=== PATIENT | male | born 1940 | race Caucasian/White ===

== ENCOUNTER 2019-07-03 13:45 | Observation (INO) | payer MEDICARE, OTHER ==
[2019-07-03] MEDS ORDERED: Sodium Chloride 0.9% 2.5 ML Syringe FLUSH PRN (15:11)
[2019-07-03] MEDS ORDERED: Sodium Chloride 0.9% 10 ML Syringe FLUSH PRN (15:11)
[2019-07-03] MEDS ORDERED: Sodium Chloride 0.9% 10 ML SDV IV PRN (15:11)
[2019-07-03] MEDS ORDERED: Furosemide 20 MG Tab PO SCH (15:30)
[2019-07-03] MEDS ORDERED: fentaNYL 100 MCG/2 ML SDV ONE (15:31)
[2019-07-03] MEDS ORDERED: Propofol 200 MG/20 ML SDV ONE (15:31)
[2019-07-03] MEDS ORDERED: Midazolam 1 MG/ML 2 ML SDV ONE (15:31)
[2019-07-03] MEDS ORDERED: Ketamine 500 mg/10 ML MDV ONE (15:40)
[2019-07-03] MEDS ORDERED: Sodium Chloride 0.9% 20 ML ONE (15:40)
[2019-07-03] MEDS ORDERED: Iopamidol 200-M 10 ML vial ITHECAL ONE (15:44)
[2019-07-03] MEDS ORDERED: Lidocaine 2% Jelly 30 ML Tube ONE (15:50)
[2019-07-03] MEDS: cefTRIAXone 2 GM in Premix Bag 1 BAG IV SCH (15:50)
[2019-07-03] MEDS ORDERED: Albuterol 0.083% 2.5 MG/3 ML Neb Soln INH SCH (16:00)
[2019-07-03] MEDS ORDERED: Furosemide 40 MG/4 ML VIAL ONE (16:33)
[2019-07-03] MEDS: Albuterol/Ipratropium 3.0-0.5 MG/3 ML Neb Soln INH SCH (17:23)
[2019-07-03] MEDS ORDERED: Furosemide 20 MG in Sodium Chloride 0.9% 50 ML IV STA (17:32)
--- NOTE | 2019-07-03 17:33 | PCM.POSTAN ---
POST ANESTHESIA ASSESSMENT - MENTAL STATUS Mental Status: Alert - VITAL SIGNS Vital Signs: Last Vital Signs Temp 36.8 C 07/03/19 17:04 Pulse 91 07/03/19 17:29 Resp 32 H 07/03/19 17:29 BP 120/65 07/03/19 17:29 Pulse Ox 96 07/03/19 17:29 - RESPIRATORY Respiratory Status: Respiratory Rate WNL, Airway Patent, O2 Saturation Stable, Supplemental Oxygen - CARDIOVASCULAR CV Status: Pulse Rate WNL - GASTROINTESTINAL GI Status: No Symptoms - POST OP HYDRATION Hydration Status: Adequate & Stable, Hypervolemic
--- NOTE | 2019-07-03 17:35 | OR ---
SURGEON: Bhavani Morales M.D. DATE OF PROCEDURE: 07/03/2019 PREOPERATIVE DIAGNOSIS: Urinary tract infection with a large left renal pelvis stone and obstruction. POSTOPERATIVE DIAGNOSIS: Urinary tract infection with a large left renal pelvis stone and obstruction. OPERATION: Cystoscopy and attempted left ureteral stent placement, unsuccessful. DESCRIPTION OF PROCEDURE: The patient was given adequate sedation. He was placed in dorsal lithotomy position, prepped and draped in sterile drapes. Cystourethroscopy was done, showed an enlarged prostate with a prominent median lobe. The inside of the bladder was inflamed and bloody. Attempts of locating the left ureteral orifice or the right for that matter were not successful because of the edematous changes in the bladder and close to the bladder neck. Ultimately, after about 15 minutes of looking, I could not locate the ureteral orifices and the procedure was stopped. A Candelaria catheter was placed in the bladder for drainage, and he was moved to recovery room in stable condition. GUY / TRACEY /[id number]
[2019-07-03] MEDS ORDERED: Furosemide 20 MG/2 ML VIAL ONE (17:38)
--- NOTE | 2019-07-03 17:46 | CONS ---
DATE OF CONSULTATION: 07/03/2019 DATE OF : 1940 PRIMARY CARE PHYSICIAN: DAHLIA Shanks HISTORY OF PRESENT ILLNESS: [id number]. He was transferred from [place] because he had a UTI with urinary sepsis, grew gram-positive organisms. He had a large 5 cm stone in the left renal pelvis that is creating an obstruction with edema of the renal parenchyma and perinephric stranding. He has multiple medical problems including hypertension, hypothyroidism, diabetes, insulin-dependent, obesity, congestive heart failure. His initial white blood count was 17,000 that came down to 13,000 with antibiotic treatment in [place]. His lactic acid was elevated, came back to normal at 1.3. PHYSICAL EXAMINATION: GENERAL: He is alert and oriented. He is somewhat short of breath. VITAL SIGNS: Respiratory rate is about 18. He is obese. His BMI was measured 42. HEART: Shows normal sinus rhythm. LUNGS: Clear. ABDOMEN: Obese. EXTREMITIES: 3+ peripheral edema. LABORATORY DATA: I reviewed his lab work and his CT scan. PLAN: I need to put a double-J stent in to drain the kidney better and facilitate getting rid of the infection. GUY / TRACEY /[id number]
[2019-07-03] MEDS ORDERED: Furosemide 20 MG/2 ML VIAL IVPUSH ONE ×2 (18:40→19:10)
--- NOTE | 2019-07-03 19:46 | PCM.CONS ---
H&P History of Present Illness - General Date of Service: 07/03/19 Admit Problem/Dx: Admission Diagnosis/Problem Admission Diagnosis/Problem Kidney stone History Limitations: Reports: No Limitations - History of Present Illness Initial Comments - Free Text/Narative: Patient is a 78 y/o M with PMH of HFpEF, DM, recurrent renal stones, recent urosepsis, gastroparesis, LVH, JOSE D, COPD, Fatty liver disease, HTN, OA, comes in from [facility] where he was being treated for sepsis secondary to UTI/ pyelonephritis, Urine cultures reportedly were growing gram positive organism. Patient was found to have a left renal staghorn calculi, and it was decided to transfer patient to [facility] for further management. Here at [place] the cystoscopy was attempted but was unsuccessful due to the edematous bladder wall causing obstruction. Patient was admitted to med-surg unit for further monitoring with possible transfer to [place] in AM. During my encounter patient was comfortable, denied chest pain,n/v, abdominal pain, fever, chills, sob, cough. - Related Data Allergies/Adverse Reactions: Allergies Allergy/AdvReac Type Severity Reaction Status Date / Time dapagliflozin [From [facility]] Allergy Hives Verified 07/03/19 13:53 Home Medications: Home Meds Acetaminophen [Tylenol Arthritis Pain] 650 mg PO ASDIRECTED PRN 07/03/19 [ History] Albuterol [Proventil Neb Soln] 1 puff INH Q4HR 07/03/19 [History] Albuterol/Ipratropium [DuoNeb 3.0-0.5 MG/3 ML] 1 puff INH Q6HR 07/03/19 [History ] Budesonide [Pulmicort] 1 puff INH BID 07/03/19 [History] Furosemide 20 mg PO ASDIRECTED 07/03/19 [History] Insulin Lispro [HumaLOG] 2 - 6 units SQ ASDIRECTED 07/03/19 [History] Metoprolol Tartrate 50 mg PO BID 07/03/19 [History] Past Medical History HEENT History: Reports: None Cardiovascular History: Reports: Heart Failure, High Cholesterol, Hypertension, Other (See Below) Other Cardiovascular History: Left ventricular hypertrophy, left artrial enlargement, aortic sclerosis Respiratory History: Reports: COPD, Sleep Apnea, SOB, Other (See Below) Other Respiratory History: CPAP Gastrointestinal History: Reports: Cholelithiasis, Colon Polyp, Fatty Liver, GERD, Other (See Below) Other Gastrointestinal History: gastopherosis, non-alcohol fatty liver disease Genitourinary History: Reports: Prostate Disorder, Renal Calculus Musculoskeletal History: Reports: None Neurological History: Reports: None Psychiatric History: Reports: None Endocrine/Metabolic History: Reports: Diabetes, Type II Hematologic History: Reports: None Immunologic History: Reports: None Oncologic (Cancer) History: Reports: None Dermatologic History: Reports: None - Past Surgical History Head Surgeries/Procedures: Reports: None HEENT Surgical History: Reports: None Cardiovascular Surgical History: Reports: None Respiratory Surgical History: Reports: None GI Surgical History: Reports: None, Colonoscopy Male Surgical History: Reports: None Endocrine Surgical History: Reports: None Neurological Surgical History: Reports: None Musculoskeletal Surgical History: Reports: None Oncologic Surgical History: Reports: None Dermatological Surgical History: Reports: None Social & Family History - Family History Family Medical History: Noncontributory - Tobacco Use Smoking Status *Q: Former Smoker Used Tobacco, but Quit: Yes Month/Year Tobacco Last Used: 55 year - Caffeine Use Caffeine Use: Reports: None - Recreational Drug Use Recreational Drug Use: No H&P Review of Systems - Review of Systems: General: Denies: Fever, Chills, Malaise Pulmonary: Denies: Shortness of Breath, Wheezing, Sputum Cardiovascular: Denies: Chest Pain, Palpitations Gastrointestinal: Denies: Abdominal Pain, Anorexia, Black Stool, Nausea Genitourinary: Denies: Dysuria, Frequency Musculoskeletal: Denies: Neck Pain, Shoulder Pain Skin: Denies: Cyanosis, Jaundice, Mottled Neurological: Denies: Confusion, Dizziness Exam - Vital Signs Vital Signs: Last Vital Signs Temp 36.8 C 07/03/19 17:04 Pulse 89 07/03/19 17:59 Resp 26 H 07/03/19 17:59 BP 124/60 07/03/19 17:59 Pulse Ox 94 L 07/03/19 17:59 Weight: 112.945 kg - Exam General: Alert, Oriented HEENT: Conjunctiva Clear Neck: Supple, Trachea Midline Lungs: Decreased Breath Sounds, Crackles Cardiovascular: Regular Rate, Regular Rhythm GI/Abdominal Exam: Soft, Non-Tender Back Exam: No: CVA Tenderness (L), CVA Tenderness (R) Extremities: Pedal Edema Peripheral Pulses: 3+: Dorsalis Pedis (L), Dorsalis Pedis (R) Skin: Warm, Dry Sepsis Event Note - Evaluation Sepsis Screening Result: No Definite Risk - Focused Exam Vital Signs: Vital Signs Temp Pulse Resp BP Pulse Ox 07/03/19 17:59 89 26 H 124/60 94 L 07/03/19 17:54 90 28 H 116/62 94 L 07/03/19 17:49 90 18 126/66 93 L 07/03/19 17:44 92 26 H 121/63 93 L 07/03/19 17:39 92 28 H 118/63 94 L 07/03/19 17:34 92 30 H 130/66 96 07/03/19 17:29 91 32 H 120/65 96 07/03/19 17:24 89 30 H 117/64 94 L 07/03/19 17:19 91 28 H 115/68 90 L 07/03/19 17:14 91 30 H 117/59 L 92 L 07/03/19 17:09 96 22 H 130/74 95 07/03/19 17:04 36.8 C 102 H 16 143/75 H 93 L 07/03/19 13:47 35.6 C 94 18 107/59 L 95 Date Exam was Performed: 07/03/19 Time Exam was Performed: 20:04 Consult PN Assessment/Plan (1) Staghorn calculus SNOMED Code(s): 916692550 Code(s): N20.0 - CALCULUS OF KIDNEY Current Visit: Yes (2) (HFpEF) heart failure with preserved ejection fraction SNOMED Code(s): 917429698 Code(s): I50.30 - UNSPECIFIED DIASTOLIC (CONGESTIVE) HEART FAILURE Current Visit: Yes (3) Diabetes mellitus SNOMED Code(s): 76842807 Code(s): E11.9 - TYPE 2 DIABETES MELLITUS WITHOUT COMPLICATIONS Current Visit: Yes (4) COPD (chronic obstructive pulmonary disease) SNOMED Code(s): 38575048 Code(s): J44.9 - CHRONIC OBSTRUCTIVE PULMONARY DISEASE, UNSPECIFIED Current Visit: Yes (5) Hypothyroidism SNOMED Code(s): 27522198 Code(s): E03.9 - HYPOTHYROIDISM, UNSPECIFIED Current Visit: Yes (6) HTN (hypertension) SNOMED Code(s): 16745781 Code(s): I10 - ESSENTIAL (PRIMARY) HYPERTENSION Current Visit: Yes (7) JOSE D on CPAP SNOMED Code(s): 00027750 Code(s): G47.33 - OBSTRUCTIVE SLEEP APNEA (ADULT) (PEDIATRIC); Z99.89 - DEPENDENCE ON OTHER ENABLING MACHINES AND DEVICES Current Visit: Yes (8) Gastroparesis SNOMED Code(s): 144585016 Code(s): K31.84 - GASTROPARESIS Current Visit: Yes Problem List Initiated/Reviewed/Updated: Yes My Orders Last 24 Hours: My Active Orders 07/03/19 19:08 Echo 2D wo Cont [US] Routine 07/03/19 19:11 CULTURE BLOOD [BC] Stat CULTURE BLOOD [BC] Stat Blood Culture x2 Reflex Set [OM.PC] Stat 07/03/19 19:18 Oxygen Therapy [RC] ASDIRECTED 07/03/19 21:00 Furosemide [Lasix] 40 mg IVPUSH BID Insulin Detemir [Levemir] 15 unit SUBCUT BEDTIME 07/04/19 07:30 Insulin Aspart [NovoLOG] See Protocol SUBCUT TIDAC Plan: 78 y/o M comes in for cystoscopy and stent placement procedure was unsuccessful due to edematous bladder wall continue IV ceftriaxone , add linezolid for gram positive coverage as previous cultures grew gm positive organism Will obtain routine labs including cbc,cmp, mg, phos, f/u on labs start IV Lasix 40 BID due to ongoing fluid overload 2D ECHO cont B jasmine cont Long acting insulin SSI high dose cont to monitor vitals closely Thank you for allowing me to take care of this patient
[2019-07-03] MEDS ORDERED: Ondansetron 4 MG/2 ML SDV IVPUSH PRN (20:10)
[2019-07-03] MEDS ORDERED: Linezolid 600 MG in Premix Bag 1 BAG IV SCH (21:00)
[2019-07-03] MEDS ORDERED: Insulin Detemir 100 Units/ML 3 ML Pen SUBCUT SCH (21:00)
[2019-07-03] MEDS ORDERED: Simvastatin 20 MG Tab PO SCH (21:00)
[2019-07-03] MEDS ORDERED: Furosemide 40 MG/4 ML VIAL IVPUSH SCH (21:00)
[2019-07-03 21:05] LABS: CARBON DIOXIDE,CO2 26.7 mmol/L (21.0-32.0); POTASSIUM,K 3.7 mmol/L (3.5-5.1)
[2019-07-03] MEDS: Budesonide 0.5 MG/2 ML Neb Susp INH SCH (21:05)
[2019-07-03] MEDS: Metoprolol Tartrate 50 MG Tab PO SCH (21:24)
[2019-07-03] MEDS: Linezolid 600 MG in Premix Bag 1 BAG IV SCH (22:27)
[2019-07-04] MEDS: Albuterol/Ipratropium 3.0-0.5 MG/3 ML Neb Soln INH SCH ×3 (00:50→11:30)
--- NOTE | 2019-07-04 05:24 | PCM.PREANE ---
Preanesthetic Assessment - Anesthesia/Transfusion/Family Hx Anesthesia History: Prior Anesthesia Without Reaction Family History of Anesthesia Reaction: No Transfusion History: Unknown Intubation History: Unknown - Review of Systems General: No Symptoms Pulmonary: No Symptoms Cardiovascular: No Symptoms Gastrointestinal: No Symptoms Neurological: No Symptoms Other: Reports: None - Physical Assessment Vital Signs: Last Vital Signs Temp 36.9 C 07/04/19 00:00 Pulse 87 07/04/19 00:00 Resp 24 H 07/04/19 00:00 BP 111/58 L 07/04/19 00:00 Pulse Ox 92 L 07/04/19 00:00 Height: 5 ft 4 in Weight: 112.945 kg ASA Class: 3E Mental Status: Alert & Oriented x3 Airway Class: Mallampati = 2 Dentition: Reports: Edentulous Thyro-Mental Finger Breadths: 2 Mouth Opening Finger Breadths: 2 (very small mouth) ROM/Head Extension: Limited/Partial Lungs: Clear to Auscultation, Normal Respiratory Effort Cardiovascular: Regular Rate, Regular Rhythm - Lab Values: Laboratory Last Values WBC 12.92 K/uL (4.0-11.0) H 07/03/19 20:35 RBC 4.24 M/uL (4.50-5.90) L 07/03/19 20:35 Hgb 12.4 g/dL (13.0-17.0) L 07/03/19 20:35 Hct 38.1 % (38.0-50.0) 07/03/19 20:35 MCV 89.9 fL (80.0-98.0) 07/03/19 20:35 MCH 29.2 pg (27.0-32.0) 07/03/19 20:35 MCHC 32.5 g/dL (31.0-37.0) 07/03/19 20:35 RDW Std Deviation 46.7 fl (28.0-62.0) 07/03/19 20:35 RDW Coeff of Nia 14 % (11.0-15.0) 07/03/19 20:35 Plt Count 219 K/uL (150-400) 07/03/19 20:35 MPV 10.20 fL (7.40-12.00) 07/03/19 20:35 Neut % (Auto) 82.3 % (48.0-80.0) H 07/03/19 20:35 Lymph % (Auto) 6.6 % (16.0-40.0) L 07/03/19 20:35 Letcher % (Auto) 10.4 % (0.0-15.0) 07/03/19 20:35 Eos % (Auto) 0.5 % (0.0-7.0) 07/03/19 20:35 Baso % (Auto) 0.2 % (0.0-1.5) 07/03/19 20:35 Neut # (Auto) 10.6 K/uL (1.4-5.7) H 07/03/19 20:35 Lymph # (Auto) 0.9 K/uL (0.6-2.4) 07/03/19 20:35 Letcher # (Auto) 1.4 K/uL (0.0-0.8) H 07/03/19 20:35 Eos # (Auto) 0.1 K/uL (0.0-0.7) 07/03/19 20:35 Baso # (Auto) 0.0 K/uL (0.0-0.1) 07/03/19 20:35 Nucleated RBC % 0.0 /100WBC 07/03/19 20:35 Nucleated RBCs # 0 K/uL 07/03/19 20:35 Sodium 137 mmol/L (136-148) 07/03/19 20:35 Potassium 3.7 mmol/L (3.5-5.1) 07/03/19 20:35 Chloride 101 mmol/L (98-107) 07/03/19 20:35 Carbon Dioxide 26.7 mmol/L (21.0-32.0) 07/03/19 20:35 BUN 15 mg/dL (7.0-18.0) 07/03/19 20:35 Creatinine 1.4 mg/dL (0.8-1.3) H 07/03/19 20:35 Est Cr Clr Drug Dosing 37.59 mL/min 07/03/19 20:35 Estimated GFR (MDRD) 49.3 ml/min 07/03/19 20:35 Glucose 334 mg/dL (74-106) H 07/03/19 20:35 POC Glucose 278 mg/dL (60-110) H 07/04/19 05:03 Calcium 8.2 mg/dL (8.5-10.1) L 07/03/19 20:35 Phosphorus 1.9 mg/dL (2.6-4.7) L 07/03/19 20:35 Magnesium 1.7 mg/dL (1.8-2.4) L 07/03/19 20:35 Total Bilirubin 0.3 mg/dL (0.2-1.0) 07/03/19 20:35 AST 34 IU/L (15-37) 07/03/19 20:35 ALT 73 IU/L (14-63) H 07/03/19 20:35 Alkaline Phosphatase 46 U/L (46-116) 07/03/19 20:35 Total Protein 7.0 g/dL (6.4-8.2) 07/03/19 20:35 Albumin 2.8 g/dL (3.4-5.0) L 07/03/19 20:35 Globulin 4.2 g/dL (2.6-4.0) H 07/03/19 20:35 Albumin/Globulin Ratio 0.7 (0.9-1.6) L 07/03/19 20:35 Urine Color RED 07/03/19 20:40 Urine Appearance CLOUDY 07/03/19 20:40 Urine pH 6.0 (5.0-8.0) 07/03/19 20:40 Ur Specific Eak[place] 1.015 (1.001-1.035) 07/03/19 20:40 Urine Protein 100 mg/dL (NEGATIVE) H 07/03/19 20:40 Urine Glucose (UA) 100 mg/dL (NEGATIVE) H 07/03/19 20:40 Urine Ketones NEGATIVE mg/dL (NEGATIVE) 07/03/19 20:40 Urine Occult Blood MODERATE (NEGATIVE) H 07/03/19 20:40 Urine Nitrite NEGATIVE (NEGATIVE) 07/03/19 20:40 Urine Bilirubin NEGATIVE (NEGATIVE) 07/03/19 20:40 Urine Urobilinogen 0.2 EU/dL (<2.0) 07/03/19 20:40 Ur Leukocyte Esterase MODERATE (NEGATIVE) H 07/03/19 20:40 Urine RBC TOO NUMEROUS TO CT (0-2/HPF) 07/03/19 20:40 Urine WBC 1-3 (0-5/HPF) 07/03/19 20:40 Ur Epithelial Cells OCCASIONAL (NONE-FEW) 07/03/19 20:40 Urine Bacteria RARE (NEGATIVE) 07/03/19 20:40 Urinalysis Comment 07/03/19 20:40 - Allergies Allergies/Adverse Reactions: Allergies Allergy/AdvReac Type Severity Reaction Status Date / Time dapagliflozin [From [facility]] Allergy Hives Verified 07/03/19 13:53 - Blood Blood Available: No - Anesthesia Plan Pre-Op Medication Ordered: None - Acknowledgements Anesthesia Type Planned: MAC Pt an Appropriate Candidate for the Planned Anesthesia: Yes Alternatives and Risks of Anesthesia Discussed w Pt/Guardian: Yes Pt/Guardian Understands and Agrees with Anesthesia Plan: Yes PreAnesthesia Questionnaire HEENT History: Reports: None Cardiovascular History: Reports: Heart Failure, High Cholesterol, Hypertension, Other (See Below) Other Cardiovascular History: Left ventricular hypertrophy, left artrial enlargement, aortic sclerosis Respiratory History: Reports: COPD, Sleep Apnea, SOB, Other (See Below) Other Respiratory History: CPAP Gastrointestinal History: Reports: Cholelithiasis, Colon Polyp, Fatty Liver, GERD, Other (See Below) Other Gastrointestinal History: gastopherosis, non-alcohol fatty liver disease Genitourinary History: Reports: Prostate Disorder, Renal Calculus Musculoskeletal History: Reports: None Neurological History: Reports: None Psychiatric History: Reports: None Endocrine/Metabolic History: Reports: Diabetes, Type II (BMI 42.7) Hematologic History: Reports: None Immunologic History: Reports: None Oncologic (Cancer) History: Reports: None Dermatologic History: Reports: None - Past Surgical History Head Surgeries/Procedures: Reports: None HEENT Surgical History: Reports: None Cardiovascular Surgical History: Reports: None Respiratory Surgical History: Reports: None GI Surgical History: Reports: None, Colonoscopy Male Surgical History: Reports: None Endocrine Surgical History: Reports: None Neurological Surgical History: Reports: None Musculoskeletal Surgical History: Reports: None Oncologic Surgical History: Reports: None Dermatological Surgical History: Reports: None - SUBSTANCE USE Smoking Status *Q: Former Smoker Recreational Drug Use History: No - HOME MEDS Home Medications: Home Meds Acetaminophen [Tylenol Arthritis Pain] 650 mg PO ASDIRECTED PRN 07/03/19 [ History] Albuterol [Proventil Neb Soln] 1 puff INH Q4HR 07/03/19 [History] Albuterol/Ipratropium [DuoNeb 3.0-0.5 MG/3 ML] 1 puff INH Q6HR 07/03/19 [History ] Budesonide [Pulmicort] 1 puff INH BID 07/03/19 [History] Furosemide 20 mg PO ASDIRECTED 07/03/19 [History] Insulin Lispro [HumaLOG] 2 - 6 units SQ ASDIRECTED 07/03/19 [History] Metoprolol Tartrate 50 mg PO BID 07/03/19 [History] - CURRENT (IN HOUSE) MEDS Current Meds: Current Medications Albuterol/Ipratropium (Duoneb 3.0-0.5 Mg/3 Ml) 3 ml INH Q6HR [facility] Last Admin: 07/04/19 00:50 Dose: 3 ml Aspirin (Aspirin) 81 mg PO DAILY [facility] Budesonide (Pulmicort) 0.5 mg INH BID [facility] Last Admin: 07/03/19 21:05 Dose: 0.5 mg Finasteride (Proscar) 5 mg PO DAILY [facility] Furosemide (Lasix) 40 mg IVPUSH BID [facility] Ceftriaxone Sodium/Dextrose 2 (gm/ Premix) 50 mls @ 100 mls/hr IV Q24H [facility] Last Admin: 07/03/19 15:50 Dose: 100 mls/hr Linezolid 600 mg/ Premix 300 mls @ 300 mls/hr IV Q12H [facility] Last Admin: 07/03/19 22:27 Dose: Not Given Insulin Aspart (Novolog) 0 unit SUBCUT TIDAC [facility]; Protocol Insulin Glargine (Lantus Solostar) 15 units SUBCUT BIDAC [facility] Levothyroxine Sodium (Levothyroxine) 125 mcg PO ACBREAKFAST [facility] Metoprolol Tartrate (Lopressor) 50 mg PO BID [facility] Last Admin: 07/03/19 21:24 Dose: 50 mg Omeprazole (Omeprazole) 20 mg PO ACBREAKFAST [facility] Ondansetron HCl (Zofran) 4 mg IVPUSH Q6H PRN PRN Reason: Nausea/Vomiting Simvastatin (Zocor) 20 mg PO BEDTIME [facility] Last Admin: 07/03/19 21:35 Dose: 20 mg Sodium Chloride (Saline Flush) 10 ml FLUSH ASDIRECTED PRN PRN Reason: Keep Vein Open Sodium Chloride (Saline Flush) 2.5 ml FLUSH ASDIRECTED PRN PRN Reason: Keep Vein Open Sodium Chloride (Normal Saline) 10 ml IV ASDIRECTED PRN PRN Reason: IV Use Tamsulosin HCl (Flomax) 0.4 mg PO PCBREAKFAST [facility] Discontinued Medications Albuterol (Proventil Neb Soln) 2.5 mg INH Q4HR [facility] Fentanyl (Sublimaze) Confirm Administered Dose 100 mcg .ROUTE .STK-MED ONE Stop: 07/03/19 15:32 Furosemide (Lasix) 40 mg PO ASDIRECTED [facility] Furosemide (Lasix) Confirm Administered Dose 40 mg .ROUTE .STK-MED ONE Stop: 07/03/19 16:34 Furosemide (Lasix) Confirm Administered Dose 20 mg .ROUTE .STK-MED ONE Stop: 07/03/19 17:39 Last Admin: 07/03/19 19:48 Dose: Not Given Furosemide (Lasix) 20 mg IVPUSH ONETIME ONE Stop: 07/03/19 18:41 Last Admin: 07/03/19 17:48 Dose: 20 mg Furosemide (Lasix) 20 mg IVPUSH NOW ONE Stop: 07/03/19 19:11 Last Admin: 07/03/19 19:48 Dose: 20 mg Furosemide (Lasix) 40 mg IVPUSH BID [facility] Sodium Chloride (Normal Saline) Confirm Administered Dose 20 mls @ as directed .ROUTE .STK-MED ONE Stop: 07/03/19 15:41 Furosemide 20 mg/ Sodium (Chloride) 52 mls @ 100 mls/hr IV NOW STA Stop: 07/03/19 18:03 Linezolid 600 mg/ Premix 300 mls @ 300 mls/hr IV Q12H [facility] Last Admin: 07/03/19 21:30 Dose: 300 mls/hr Insulin Detemir (Levemir) 15 unit SUBCUT BEDTIME [facility] Iopamidol (Isovue-M 200) Confirm Administered Dose 10 ml ITHECAL .STK-MED ONE Stop: 07/03/19 15:45 Ketamine HCl (Ketalar) Confirm Administered Dose 500 mg .ROUTE .STK-MED ONE Stop: 07/03/19 15:41 Lidocaine HCl (Xylocaine 2% Jelly) Confirm Administered Dose 30 ml .ROUTE .STK- MED ONE Stop: 07/03/19 15:51 Midazolam HCl (Versed 1 Mg/Ml) Confirm Administered Dose 2 mg .ROUTE .STK-MED ONE Stop: 07/03/19 15:32 Propofol (Diprivan 20 Ml) Confirm Administered Dose 200 mg .ROUTE .STK-MED ONE Stop: 07/03/19 15:32
--- NOTE | 2019-07-04 05:52 | PCM48HPAN ---
Post Anesthesia Note - EVALUATION WITHIN 48HRS OF ANESTHETIC Vital Signs in Normal Range: Yes Patient Participated in Evaluation: Yes Respiratory Function Stable: Yes Airway Patent: Yes Cardiovascular Function Stable: Yes Hydration Status Stable: Yes Pain Control Satisfactory: Yes Nausea and Vomiting Control Satisfactory: Yes Mental Status Recovered: Yes Vital Signs: Last Vital Signs Temp 36.9 C 07/04/19 00:00 Pulse 87 07/04/19 00:00 Resp 24 H 07/04/19 00:00 BP 111/58 L 07/04/19 00:00 Pulse Ox 92 L 07/04/19 00:00
[2019-07-04] MEDS ORDERED: Omeprazole 20 MG Cap.CR PO SCH (07:30)
[2019-07-04] MEDS ORDERED: Insulin Glargine,Human Rec. Analog 100 Units/ML 3 ML Pen SUBCUT SCH (07:30)
[2019-07-04] MEDS ORDERED: Levothyroxine 125 MCG Tab PO SCH (07:30)
[2019-07-04] MEDS: Insulin Aspart 100 Units/ML 3 ML Pen SUBCUT SCH ×2 (08:24→13:03)
[2019-07-04] MEDS: Metoprolol Tartrate 50 MG Tab PO SCH (08:28)
[2019-07-04] MEDS ORDERED: Tamsulosin 0.4 MG Cap.ER PO SCH (08:30)
[2019-07-04] MEDS ORDERED: Furosemide 40 MG/4 ML VIAL IVPUSH SCH (09:00)
[2019-07-04] MEDS ORDERED: Finasteride 5 MG Tab PO SCH (09:00)
[2019-07-04] MEDS ORDERED: Aspirin 81 MG Tab.Chew PO SCH (09:00)
[2019-07-04] MEDS: Budesonide 0.5 MG/2 ML Neb Susp INH SCH (09:20)
[2019-07-04] MEDS: Linezolid 600 MG in Premix Bag 1 BAG IV SCH (11:32)
[2019-07-04] MEDS: cefTRIAXone 2 GM in Premix Bag 1 BAG IV SCH (16:37)
--- NOTE | 2019-07-07 14:26 | ECHO ---
EXAM DATE: 07/03/19 PATIENT'S AGE: 78 The echocardiogram report can be seen in this patient's EMR (Electronic Medical Record) in the Reports section. The report has also been scanned into PACs. SAMANTHA
== END 2019-07-04 16:10 | disposition home or self-care (01) ==
LOC: MW.ED 13:45 → EDBD 13:45 → MW.SDS 15:30 → MW.MS 18:42 → MW.SDS 18:44
PROVIDERS: ADMIT Urology; ATTEND Urology
DX: N20.0 Calculus of kidney (principal); N39.0 Urinary tract infection, site not specified; N40.1 Benign prostatic hyperplasia with lower urinary tract symptoms; N13.8 Other obstructive and reflux uropathy; E11.43 Type 2 diabetes mellitus with diabetic autonomic (poly)neuropathy; K31.84 Gastroparesis; I11.0 Hypertensive heart disease with heart failure; I50.9 Heart failure, unspecified; E03.9 Hypothyroidism, unspecified; G47.33 Obstructive sleep apnea (adult) (pediatric); J44.9 Chronic obstructive pulmonary disease, unspecified; E78.00 Pure hypercholesterolemia, unspecified; K21.9 Gastro-esophageal reflux disease without esophagitis; M19.90 Unspecified osteoarthritis, unspecified site; E66.9 Obesity, unspecified; Z68.41 Body mass index [BMI] 40.0-44.9, adult; Z87.891 Personal history of nicotine dependence; Z79.4 Long term (current) use of insulin; Z79.899 Other long term (current) drug therapy; Z88.8 Allergy status to other drugs, medicaments and biological substances; Z99.89 Dependence on other enabling machines and devices
CPT/HCPCS: 36415; 52332; 80053; 81001; 82962; 83735; 84100; 85025; 87040; 87086; 93306; 94640; 96365; 96375; 96376; A9270; G0378; J0696; J1815; J1940; J2020; J2250; C1769; J2704; J3010; J7620-GY; Q9966